=== PATIENT | female | born 1950 | race Caucasian/White ===

== ENCOUNTER 2023-10-23 14:51 | Outpatient (CLI) | payer MEDICARE | END 2023-10-23 14:52 | disposition home or self-care (01) | LOC: LAB 14:51 | PROVIDERS: ATTEND Internal Medicine | DX: M31.6 Other giant cell arteritis (principal) | CPT/HCPCS: 36415; 85651; 86140 ==

== ENCOUNTER 2024-01-05 09:29 | Outpatient (CLI) | payer MEDICARE | END 2024-01-05 09:30 | disposition home or self-care (01) | LOC: LAB.S 09:29 | PROVIDERS: ATTEND Internal Medicine | DX: R60.9 Edema, unspecified (principal) | CPT/HCPCS: 36415; 83880; 85379 ==

== ENCOUNTER 2024-05-16 12:34 | Emergency (ER) | payer MEDICARE ==
[2024-05-16 13:37] LABS: ALBUMIN/GLOBULIN RATIO 1.7 (1.0-2.2); BILIRUBIN,TOTAL 0.7 mg/dL (0.2-1.0); CALCIUM 9.6 mg/dL (8.5-10.3); CREATININE 0.8 mg/dL (0.6-1.3); POTASSIUM 3.6 mmol/L (3.5-4.5); TOTAL PROTEIN 6.4 g/dL (6.4-8.9)
--- NOTE | 2024-05-16 14:01 | ED Physician Documentation ---
History of Present Illness - Stated complaint Stated Complaint: L SIDE PAIN - Chief complaint Chief Complaint: Abd Pain - History obtained from History obtained from: Patient - Additonal information Additional information: Patient is a 74-year-old female presenting to the emergency department with past medical history of giant cell arteritis. Patient reports left-sided flank pain that started around 7 AM this progressively worsened. Patient has persistent nausea and vomiting on arrival. She denies ever having the symptoms before denies any history of abdominal surgeries. She denies any fevers or chills. She recently had a PET scan a few weeks ago that showed possible ruptured peritoneum. She had a colonoscopy and endoscopy performed about a week ago that was performed and showed no acute findings. Patient notes she has no urinary symptoms no changes in stool. PD PAST MEDICAL HISTORY - Past Medical History Cardiovascular: Hypertension Respiratory: None Neuro: None Endocrine/Autoimmune: None GI: Diverticulitis, Other [employer]: None : None HEENT: None Psych: None Musculoskeletal: Osteoarthritis Derm: None - Past Surgical History Past Surgical History: Yes Ortho: Other Cardiovascular: AAA - Present Medications Home Medications: Ambulatory Orders Medication Instructions Recorded Confirmed Aspirin EC [Ecotrin] 81 mg PO DAILY 04/07/24 04/07/24 Leflunomide 20 mg PO DAILY 04/07/24 04/07/24 Omeprazole 40 mg PO DAILY 04/07/24 04/07/24 Rosuvastatin Calcium 20 mg PO DAILY 04/07/24 04/07/24 Tocilizumab [Actemra] 520 mg IV MAINTENANCE.IV 04/07/24 04/07/24 predniSONE [Prednisone] 10 mg PO DAILY 04/07/24 04/07/24 HYDROcod/ACETAM 5/325 [Bisbee 5/325] 1 - 2 tab PO Q6H PRN #15 tablet 05/16/24 Ondansetron Odt [Zofran] 4 mg TL Q6H PRN #10 tablet 05/16/24 Tamsulosin [Flomax] 0.4 mg PO DAILY #14 cap 05/16/24 - Allergies Allergies/Adverse Reactions: Allergies Allergy/AdvReac Type Severity Reaction Status Date / Time lisinopril Allergy Unknown Verified 05/16/24 12:43 bacitracin AdvReac Rash Verified 05/16/24 12:43 [From Neosporin ([id number])] neomycin AdvReac Rash Verified 05/16/24 12:43 [From Neosporin ([id number])] polymyxin B AdvReac Rash Verified 05/16/24 12:43 [From Neosporin ([id number])] - Social History Does the pt smoke?: No Smoking Status: Never smoker - Immunizations Immunizations are current?: Yes PD ED PE NORMAL - Vitals Vital signs reviewed: Yes - General General: Alert and oriented X 3 - HEENT HEENT: Atraumatic - Neck Neck: Supple, no meningeal sign - Cardiac Cardiac: RRR, No murmur, No gallop, No rub - Respiratory Respiratory: No respiratory distress, Clear bilaterally - Abdomen Abdomen: Normal bowel sounds, Other (Left sided lower abdominal tenderness with active bowel sounds no obvious distention. No rebound on exam. Guarding noted to mid and left lower abdomen) - Back Back: Other (Left CVA tenderness) - Derm Derm: Normal color, No rash - Extremities Extremities: No deformity - Neuro Neuro: Alert and oriented X 3 Eye Opening: Spontaneous Motor: Obeys Commands Verbal: Oriented GCS Score: 15 Results - Vitals Vitals: Vital Signs - 24 hr 05/16/24 05/16/24 05/16/24 12:36 14:13 14:30 Temperature 36.5 C 36.8 C Heart Rate 83 62 62 Respiratory 20 14 14 Rate Blood Pressure 142/78 H 157/82 H 157/82 H O2 Saturation 98 99 99 05/16/24 05/16/24 05/16/24 15:00 15:30 17:33 Temperature 36.8 C 36.8 C Heart Rate 60 60 60 Respiratory 16 16 16 Rate Blood Pressure 140/80 H 138/82 H 130/80 O2 Saturation 100 100 100 Oxygen O2 Source Room air - Labs Labs: Laboratory Tests 05/16/24 05/16/24 05/16/24 12:58 13:17 13:17 WBC 4.4 L RBC 4.28 Hgb 12.7 Hct 40.8 MCV 95.3 MCH 29.7 MCHC 31.1 L RDW 12.8 Plt Count 183 MPV 11.3 H Neut # (Auto) 2.0 Lymph # (Auto) 1.2 L [place] # (Auto) 0.8 Eos # (Auto) 0.2 Baso # (Auto) 0.1 Absolute Nucleated RBC 0.00 Nucleated RBC % 0.0 Sodium 141 Potassium 3.6 Chloride 107 Carbon Dioxide 28 Anion Gap 6.0 BUN 19 Creatinine 0.8 Estimated GFR (MDRD) 70 L Glucose 94 Calcium 9.6 Total Bilirubin 0.7 AST 31 ALT 35 Alkaline Phosphatase 50 Total Protein 6.4 Albumin 4.0 Globulin 2.4 Albumin/Globulin Ratio 1.7 Lipase 19 Urine Color YELLOW Urine Clarity CLEAR Urine pH 5.5 Ur Specific Webb 1.025 Urine Protein NEGATIVE Urine Glucose (UA) NEGATIVE Urine Ketones NEGATIVE Urine Occult Blood LARGE H Urine Nitrite NEGATIVE Urine Bilirubin NEGATIVE Urine Urobilinogen 0.2 (NORMAL) Ur Leukocyte Esterase NEGATIVE Urine RBC TNTC H Urine WBC 0-3 Ur Squamous Epith Cells FEW Squamous Urine Bacteria Few Ur Microscopic Review INDICATED Urine Culture Comments NOT INDICATED - Rads (name of study) CT abdomen pelvis Relevant Findings:: EMP independent interpretation of test PD Medical Decision Making - ED course Complexity details: reviewed old records, reviewed results, re-evaluated patient ED course: Patient is a 74-year-old female presenting to the emergency department with left flank pain. Patient symptoms started earlier today and patient presents with persistent nausea and vomiting. Patient tachycardic with nausea and vomiting on examination. Reproducible left CVA tenderness and left lower quadrant pain on examination. Abdomen is soft but guarding noted in left lower quadrant and midline of abdomen. Discussed with patient would like to obtain CT abdomen to further evaluate symptoms. Labs here in the emergency department showed no significant leukocytosis hemoglobin stable CMP unremarkable UA did show red blood cells in the urine but no signs of leukocytes concerning for UTI. Concern for possible urolithiasis versus diverticulitis with rupture versus small bowel obstruction. CT abdomen pelvis showed 3 mm and 4 mm urolithiasis on examination This is causing obstruction distal ureter. Additionally left lower quadrant fat necrosis noted on examination reviewed images with Dr. Patton and findings most likely consistent with epiploic inflammation. Patient updated on findings pain resolved after morphine fluids and Zofran given. Patient tolerating symptoms well. Discussed with patient findings that she is safe for discharge home given pain under control. She will have repeat CT scan as instructed on imaging in 6 months given fat necrosis seen in left lower quadrant. Patient will follow-up with urology in outpatient setting given 3 and 4mm stones in distal ureter. Patient given strict return precautions and is agreeable with this plan. Departure - Departure Disposition: 01 Home, Self Care Clinical Impression: Urolithiasis, Flank pain Condition: Good Follow-Up: Efrain Soares MD [Provider Admit Priv/Credential] - Prescriptions: Tamsulosin [Flomax] 0.4 mg PO DAILY #14 cap HYDROcod/ACETAM 5/325 [Bisbee 5/325] 1 - 2 tab PO Q6H PRN #15 tablet PRN Reason: Pain Ondansetron Odt [Zofran] 4 mg TL Q6H PRN #10 tablet PRN Reason: Nausea / Vomiting Comments: Your workup here in the emergency department was reassuring I have started to on pain medications to take home and Flomax to help pass you have been given a referral to urology in the outpatient setting. You also had incidental finding of splenic appendage inflammation. You should have a follow-up CT scan in 6 months for further evaluation. Return with any worsening pain nausea vomiting fevers difficulty urinating or any other new or worsening symptoms. Forms: PCP List Discharge Date/Time: 05/16/24 17:33
[2024-05-16] MEDS ORDERED: iohexoL-300 100 ML VIAL ONE (14:04)
[2024-05-16 14:09] LABS: BILIRUBIN,URINE NEGATIVE (NEGATIVE); CLARITY,URINE CLEAR (CLEAR); GLUCOSE, URINE (UA) NEGATIVE (NEGATIVE); KETONES,URINE (UA) NEGATIVE (NEGATIVE); LEUKOCYTE ESTERASE, URINE NEGATIVE (NEGATIVE); NITRITE,URINE NEGATIVE (NEGATIVE); OCCULT BLOOD,URINE LARGE (NEGATIVE); PH,URINE 5.5 PH (5.0-7.5); PROTEIN,URINE NEGATIVE (NEGATIVE); UROBILINOGEN,URINE 0.2 (NORMAL) E.U./dL (NORMAL)
[2024-05-16 14:23] LABS: BASOPHILS # (AUTO) 0.1 10^3/uL (0.0-0.1); BASOPHILS % (AUTO) 1.1 %; EOSINOPHILS # (AUTO) 0.2 10^3/uL (0.0-0.7); EOSINOPHILS % (AUTO) 5.1 %; HCT - HEMATOCRIT 40.8 % (37.0-47.0); HGB - HEMOGLOBIN 12.7 g/dL (12.0-16.0); LYMPHOCYTES # (AUTO) 1.2 10^3/uL (1.5-3.5); LYMPHOCYTES % (AUTO) 28.3 %; MEAN CORPUSCULAR HEMOGLOBIN 29.7 pg (27.0-31.0); MEAN CORPUSCULAR HGB CONC 31.1 g/dL (32.0-36.0); MEAN CORPUSCULAR VOLUME 95.3 fL (81.0-99.0); MEAN PLATELET VOLUME 11.3 fL (7.9-10.8); MONOCYTES # (AUTO) 0.8 10^3/uL (0.0-1.0); MONOCYTES % (AUTO) 18.9 %; NEUTROPHILS % (AUTO) 46.4 %; PLT - PLATELET COUNT 183 10^3/uL (130-450); RED BLOOD COUNT 4.28 10^6/uL (4.20-5.40); RED CELL DISTRIBUTION WIDTH 12.8 % (12.0-15.0); WHITE BLOOD COUNT 4.4 x10^3/uL (4.8-10.8)
[2024-05-16 14:25] LABS: BACTERIA,URINE Few /HPF (None Seen); RBC,URINE TNTC /HPF (0-5); SQUAMOUS EPITHELIAL CELL,UR FEW Squamous (<= Few); WBC,URINE 0-3 /HPF (0-5)
[2024-05-16] MEDS: SODIUM CHLORIDE 0.9% 1,000 ML IV STA (14:34)
[2024-05-16] MEDS: ONDANSETRON 4 MG/2 ML VIAL IVP STA (14:35)
[2024-05-16] MEDS: MORPHINE 2 MG/ML CARPUJECT IVP STA (14:35)
[2024-05-16] MEDS: iohexoL-300 100 ML VIAL IVP ONE (15:25)
[2024-05-16 15:54] VITALS: O2SAT 100
--- NOTE | 2024-05-16 16:12 | CT Report ---
PROCEDURE: Abdomen/Pelvis W INDICATIONS: concern for abdominal perforation CONTRAST: Omni 300 100ml TECHNIQUE: After the administration of intravenous contrast, a CT scan of the abdomen and pelvis was performed. Images were recorded and evaluated at appropriate window settings. Reformats: coronal and sagittal. F or radiation dose reduction, the following was used: automated exposure control, adjustment of mA and /or kV according to patient size. COMPARISON: None. FINDINGS: Image quality: Diagnostic. Lower chest: Unremarkable. Liver: No solid mass. Gallbladder: No radiopaque stones or wall thickening. Biliary tree: No intrahepatic or extrahepatic dilation, accounting for age. Spleen: No splenomegaly. Pancreas: No pancreatic ductal dilation. Adrenals: No adrenal nodule. Kidneys and ureters: Moderate left sided hydronephroureter, with an amorphous group of stones in the distal left ureter measuring 3 to 4 mm. Delayed left-sided nephrogram. Stomach, bowel and peritoneum: No gastric or small bowel dilation. No abnormal wall thickening. No pa thologic free fluid. Diverticulosis without evidence of diverticulitis. Presumed intraperitoneal fat necrosis in the left lower quadrant (series 2, image 118), with a 1.2 cm extra colonic lesion with sl ight inflammatory change. Lymph nodes: No central or retroperitoneal adenopathy. Vessels: No infrarenal aortic aneurysm. Patent portal vein. PELVIS Reproductive organs: Unremarkable. Bladder: No abnormal wall thickening, accounting for underdistention. Pelvic lymph nodes: No pelvic adenopathy by size criteria. Bones: No aggressive osseous abnormality. Degenerative changes of the spine. Grade 1 anterolisthesis of L4 on L5 and L3 on L4. Other: No significant ventral or inguinal hernia. IMPRESSION: Obstructing stones in the distal left ureter, resulting in moderate hydronephroureter. The stones shaina sure approximately 3 to 4 mm. Suspected intraperitoneal fat necrosis in the left lower quadrant, with an atypical appearance. Recom mend 6 month follow-up with CT to establish stability. Reviewed by: Rafael Ramos MD on 05/16/2024 4:11 PM PDT Approved by: Rafael Ramos MD on 05/16/2024 4:11 PM PDT Station ID: [id number]
[2024-05-16 17:42] VITALS: BP 130/80
== END 2024-05-16 17:33 | disposition home or self-care (01) ==
LOC: ED 12:34
DX: N20.9 Urinary calculus, unspecified (principal); I10 Essential (primary) hypertension; Z79.82 Long term (current) use of aspirin; Z79.899 Other long term (current) drug therapy
CPT/HCPCS: 36415; 74177; 80053; 81001; 83690; 85025; 96361; 96374; 99284; Q9967; 81003; 87086